=== PATIENT | male | born 1935 | race Caucasian/White ===

== ENCOUNTER → 2017-07-15 | Outpatient (CLI) | payer OTHER, MEDICARE | LOC: FIMAGING 14:33 | PROVIDERS: ATTEND Internal Medicine | DX: M48.06 Spinal stenosis, lumbar region (principal); M79.604 Pain in right leg; M79.605 Pain in left leg; Q61.3 Polycystic kidney, unspecified ==

== ENCOUNTER 2017-07-18 12:17 | Observation (INO) | payer OTHER, MEDICARE ==
--- NOTE | 2017-07-18 12:35 | CPEKG ---
Heart Rate: 94 RR Interval: 638 P-R Interval: 172 QRSD Interval: 94 QT Interval: 356 QTC Interval: 446 P Salem: 45 QRS Salem: -12 T Wave Salem: 9 EKG Severity - BORDERLINE ECG - EKG Impression: SINUS RHYTHM EKG Impression: VENTRICULAR PREMATURE COMPLEX EKG Impression: BORDERLINE T WAVE ABNORMALITIES Electronically Signed By: Robert Meng 18-Jul-2017 13:42:02
--- NOTE | 2017-07-18 13:08 | EDPHY ---
H & P Time Seen by Provider: 07/18/17 12:45 HPI/ROS: CHIEF COMPLAINT: More shaky and chest pain HISTORY OF PRESENT ILLNESS: This 81-year-old man has been having leg weakness for about a month and recently had a lumbar spine MRI. He feels a bit shaky and he is getting more unsteady over the last 2 days on his feet. It is worse in the morning and associated with diffuse muscle aches especially in both legs. Over the last week he has also had trouble writing with his right hand. Today he felt more shaky and had some chest pain which she describes as indigestion starting at about 1030 this morning that lasted about an hour. Did not radiate, no associated shortness of breath or nausea or diaphoresis. Symptoms mild and now gone. REVIEW OF SYSTEMS: Eye: no change in vision ENT: no sore throat Cardiac: HPI Pulmonary: no cough or SOB Abdomen: no vomiting, diarrhea, abdominal pain Musculoskeletal: no back pain Skin: no rash Neuro: no headache, but neurologic as above Constitutional: no fever : no urinary symptoms A comprehensive 10 point review of systems is otherwise negative aside from elements mentioned in the history of present illness. PAST MEDICAL HISTORY: Includes aortic stenosis, hypertension, hyper parathyroid , appendix removed. Social history: for 63 years General Appearance: Alert and conversant, cooperative. Eyes: No scleral icterus. ENT, Mouth: Normal mucous membranes. Respiratory: Normal respiratory effort, breath sounds equal, lungs are clear to auscultation. Cardiovascular: Regular rate and rhythm. 1/6 systolic murmur. Gastrointestinal: Abdomen is soft and non tender. Neurological: Alert and oriented x3. Normally conversant. Patient has slight facial droop on the left which he does not notice and the thinks is probably new, 4-4.5/5 strength in the left arm and the left leg, toes downgoing bilaterally no clonus. Skin: Warm and dry, no rashes. Musculoskeletal: No peripheral edema and no joint swelling. Psychiatric: Not agitated. Emergency Department course/MDM: EKG shows T-wave abnormalities. Patient has neurologic findings concerning for stroke or subdural. Plan for head CT, troponin, CPK, admission. Patient not made a stroke alert because onset of his symptoms is unknown, time of last known normal is not clear. Admission for evaluation of chest pain with abnormal EKG. Also will be seen by Neurology for focal left-sided findings suggestive of stroke. Smoking Status: Never smoked Constitutional: Initial Vital Signs Temperature (C) 36.5 C 07/18/17 12:22 Heart Rate 95 07/18/17 12:22 Respiratory Rate 16 07/18/17 12:22 Blood Pressure 134/61 H 07/18/17 12:22 O2 Sat (%) 98 07/18/17 12:22 O2 Delivery Mode Room Air Allergies/Adverse Reactions: No Known Allergies Allergy (Unverified 05/21/12 14:01) Home Medications: Medication Instructions Recorded Calcitriol [Calcitriol (*)] 0.25 mcg PO DAILY 07/18/17 Cetirizine [ZyrTEC 10 mg (*)] 10 mg PO BID PRN 07/18/17 Cholecalciferol Vit D3 [Vitamin D3 1,000 units PO DAILY 07/18/17 (*)] Dorzolamide 2% [Trusopt 2% (*)] 1 drops OP BID@07/18/17 Dutasteride [Avodart 0.5 MG (*)] 0.5 mg PO HS 07/18/17 Fluticasone Nasal [Flonase Nasal 2 sprays [place] 07/18/17 [place] (RX)] Herbals/Supplements -Info Only 1 each PO DAILY 07/18/17 Latanoprost 0.005% [Xalatan 0.005% 1 drops EACHEYE HS 07/18/17 (*)] Omeprazole [Prilosec 20 mg] 20 mg PO HS PRN 07/18/17 Risedronate Sodium [Actonel] 150 mg PO MO 07/18/17 Sodium Fluoride [Prevident 5000] 1 janee PO HS 07/18/17 Tamsulosin HCl [Flomax 0.4 MG (*)] 0.4 mg PO HS 07/18/17 amLODIPine BESYLATE/BENAZEPRIL 1 each PO HS 07/18/17 [Lotrel 5/10 mg Cap (*)] hydrALAZINE [Apresoline] 25 mg PO DAILY PRN 07/18/17 Medical Decision Making - Diagnostics EKG Interpretation: 12-lead EKG interpreted by me; official reading is in trace master. My interpretation is sinus rhythm with PVC and nonspecific T-wave abnormalities. Imaging Results: Imaging Impressions Head CT 07/18/17 13:05 Impression: 1. Moderate atrophy. 2. No acute hemorrhage, hydrocephalus, or mass effect. 3. Cerebrovascular atherosclerosis. 4. No definite acute infarct. 5. Moderate microvascular ischemic gliosis. 6. Consider MRI of the brain without and with contrast enhancement, if there is continued clinical concern. Findings and recommendations discussed with Emergency Department physician, KORTNEY REESE at 14:12 hour, 07/18/2017. Final report concurs with initial preliminary interpretation. Differential Diagnosis: Differential diagnosis considered for chest pain including but not limited to myocardial ischemia, aortic dissection, pericarditis, pulmonary embolus, chest wall pain, pleural inflammation and pulmonary infectious causes. Consult/Admit Bed Type: [place] [id number], [place] [address] - Data Points Laboratory Results: Laboratory Results 07/18/17 13:00 07/18/17 13:00 07/18/17 07/18/17 07/18/17 13:00 13:00 13:00 WBC 8.48 10^3/uL 10^3/uL (3.80-9.50) RBC 4.06 10^6/uL L 10^6/uL (4.40-6.38) Hgb 12.4 g/dL L g/dL (13.7-17.5) Hct 38.2 % L % (40.0-51.0) MCV 94.1 fL fL (81.5-99.8) MCH 30.5 pg pg (27.9-34.1) MCHC 32.5 g/dL g/dL (32.4-36.7) RDW 15.8 % H % (11.5-15.2) Plt Count 282 10^3/uL 10^3/uL (150-400) MPV 9.7 fL fL (8.7-11.7) Neut % (Auto) 62.7 % % (39.3-74.2) Lymph % (Auto) 27.8 % % (15.0-45.0) Toombs % (Auto) 8.3 % % (4.5-13.0) Eos % (Auto) 0.4 % L % (0.6-7.6) Baso % (Auto) 0.6 % % (0.3-1.7) Nucleat RBC Rel Count 0.0 % % (0.0-0.2) Absolute Neuts (auto) 5.32 10^3/uL 10^3/uL (1.70-6.50) Absolute Lymphs (auto) 2.36 10^3/uL 10^3/uL (1.00-3.00) Absolute Monos (auto) 0.70 10^3/uL 10^3/uL (0.30-0.80) Absolute Eos (auto) 0.03 10^3/uL 10^3/uL (0.03-0.40) Absolute Basos (auto) 0.05 10^3/uL 10^3/uL (0.02-0.10) Absolute Nucleated RBC 0.00 10^3/uL 10^3/uL (0-0.01) Immature Gran % 0.2 % % (0.0-1.1) Immature Gran # 0.02 10^3/uL 10^3/uL (0.00-0.10) PT 13.4 SEC SEC (12.0-15.0) INR 1.03 (0.83-1.16) APTT 27.3 SEC SEC (23.0-38.0) Sodium 138 mEq/L mEq/L (134-144) Potassium 4.0 mEq/L mEq/L (3.5-5.2) Chloride 103 mEq/L mEq/L (97-110) Carbon Dioxide 21 mEq/l L mEq/l (22-31) Anion Gap 14 mEq/L mEq/L (8-16) BUN 21 mg/dL mg/dL (7-23) Creatinine 1.6 mg/dL H mg/dL (0.7-1.3) Estimated GFR 41 Glucose 97 mg/dL mg/dL (70-100) Calcium 10.5 mg/dL H mg/dL (8.5-10.4) Creatine Kinase 154 IU/L IU/L (0-224) Troponin I 0.025 ng/mL ng/mL (0.000-0.034) Departure - Departure Disposition: [facility] Inpatient Acute Clinical Impression: Left-sided weakness Chest pain Qualifiers: Chest pain type: unspecified Qualified Code(s): R07.9 - Chest pain, unspecified Condition: Fair
[2017-07-18 13:20] LABS: % IMMATURE GRANULYOCYTES 0.2 % (0.0-1.1); ABSOLUTE IMMATURE GRANULOCYTES 0.02 10^3/uL (0.00-0.10); ADD DIFF? NO; ADD MORPH? NO; ADD SCAN? NO; ATYPICAL LYMPHOCYTE FLAG 0 (0-99); FRAGMENT RBC FLAG 0 (0-99); HEMATOCRIT 38.2 % (40.0-51.0); HEMOGLOBIN 12.4 g/dL (13.7-17.5); LEFT SHIFT FLG 0 (0-99); LIPEMIA HEMOLYSIS FLAG 80 (0-99); MEAN CELL HEMOGLOBIN 30.5 pg (27.9-34.1); MEAN CELL HEMOGLOBIN CONCENTR. 32.5 g/dL (32.4-36.7); MEAN CELL VOLUME 94.1 fL (81.5-99.8); MEAN PLATELET VOLUME 9.7 fL (8.7-11.7); PLATELET CLUMPS FLAG 0 (0-99); PLATELET COUNT 282 10^3/uL (150-400); RED BLOOD CELL COUNT 4.06 10^6/uL (4.40-6.38); RED CELL DISTRIBUTION WIDTH 15.8 % (11.5-15.2)
[2017-07-18 13:27] LABS: ANION GAP 14 mEq/L (8-16); CALCIUM 10.5 mg/dL (8.5-10.4); CARBON DIOXIDE 21 mEq/l (22-31); CHLORIDE 103 mEq/L (97-110); CREATININE 1.6 mg/dL (0.7-1.3); GLOMERULAR FILTRATION RATE 41; GLUCOSE 97 mg/dL (70-100); SODIUM 138 mEq/L (134-144)
[2017-07-18 13:35] LABS: APTT 27.3 SEC (23.0-38.0); INR 1.03 (0.83-1.16); PROTIME(PATIENT) 13.4 SEC (12.0-15.0)
[2017-07-18 13:38] LABS: TROPONIN I 0.025 ng/mL (0.000-0.034)
[2017-07-18] MEDS ORDERED: ONDANSETRON 4 MG/2 ML VIAL IVP PRN (16:16)
[2017-07-18] MEDS ORDERED: ONDANSETRON DISINTEGRATING 4 MG TAB PO PRN (16:16)
[2017-07-18] MEDS ORDERED: CETIRIZINE 10 MG TAB PO PRN (16:18)
[2017-07-18] MEDS ORDERED: NON-FORMULARY NEW DRUG (Omeprazole [Prilosec 20 Mg] 20 MG) PO PRN (16:18)
[2017-07-18] MEDS ORDERED: PANTOPRAZOLE SODIUM 40 MG TAB PO PRN (16:22)
--- NOTE | 2017-07-18 16:49 | GHP ---
[f rep st] HISTORY AND PHYSICAL DATE OF ADMISSION: 07/18/2017 CHIEF COMPLAINT: Generalized weakness. HISTORY OF PRESENT ILLNESS: This is an 81-year-old male, who has been having problems with lower ex tremity pain bilaterally and progressing weakness over the last several weeks. He has had some phys ical therapy for this and a recent MRI, which did show severe lumbar radiculopathy. However, the week or so, he has been feeling more generally weak. He feels tremulous. He also feels a little bit dizzy. He has had some word-finding difficulties, as well. He complains of a frontal headache that is new. He had an episode of chest pain today, but that has resolved. He also feels some dys pnea on exertion. No fevers or chills. REVIEW OF SYSTEMS: A 10-point review of systems was obtained and otherwise was negative. PAST MEDICAL HISTORY: 1. Aortic stenosis, being followed by [facility]. 2. Chronic kidney disease. 3. Hypertension. 4. BPH. 5. Osteoporosis. 6. GERD. MEDICATIONS: Reviewed. SOCIAL HISTORY: No smoking. Occasional alcohol. Lives in [place]. FAMILY HISTORY: Reviewed and noncontributory. PHYSICAL EXAM: VITAL SIGNS: Afebrile, blood pressure is 116/83, heart rate 75, oxygen saturation 9 4% on room air. GENERAL: The patient is well developed, in no apparent distress. HEENT: Nonicter ic sclerae. Extraocular movements intact. Moist mucous membranes. NECK: Supple. No thyromegaly. LUNGS: Good effort. Clear to auscultation bilaterally. CARDIOVASCULAR: Regular rate and rhythm . A 2/6 systolic murmur, heard best at the left upper sternal border. ABDOMEN: Positive bowel bev nds. Soft, nontender, nondistended. No hepatosplenomegaly. EXTREMITIES: No clubbing, cyanosis, o r edema. SKIN: Without rash. Warm, dry, intact. NEUROLOGIC: Alert, oriented x3. Very slight le ft facial droop. Slight left-sided weakness with a small amount of pronator drift. PSYCH: Normal mood and affect. LABS: Creatinine 1.6, which is his baseline. CBC is essentially normal. Calcium is a little bit h igh at 10. CT scan of the head does not show anything acute. EKG, personally reviewed and interpre jakob, normal sinus rhythm, T-wave flattening, but no ischemic changes. ASSESSMENT: This is an 81-year-old male presenting with probable cerebrovascular accident. PLAN: 1. Probable cerebrovascular accident. Will check MRI of the brain. If positive, we will go ahead with stroke workup. We will continue aspirin. Patient is definitely out of the tPA window. 2. Chest pain. This has resolved. Patient feels like this is probably gastrointestinal in nature. He does not usually get chest pain. We will check a morning troponin, but if it does not reoccur, we will not get stress testing. 3. Aortic stenosis. Patient is due for an echocardiogram, which we will get. 4. Chronic kidney disease. He is at baseline. CODE STATUS: Patient is a [id number]. /[id number]/MODL
[2017-07-18] MEDS: DORZOLAMIDE 2% OPTH DROPS OP SCH (17:57)
[2017-07-18 20:37] LABS: COLOR YELLOW; LEUKOCYTE ESTERASE,URINE NEGATIVE (NEGATIVE); NITRITE,URINE NEGATIVE (NEGATIVE)
[2017-07-18] MEDS ORDERED: DUTASTERIDE 0.5 MG CAP PO SCH (21:00)
[2017-07-18] MEDS ORDERED: TAMSULOSIN HCL 0.4 MG CAP PO SCH (21:00)
[2017-07-18] MEDS ORDERED: FLUTICASONE NASAL 120 SPRAYS/16 GM MDI EACHNARE SCH (21:00)
[2017-07-18] MEDS ORDERED: AMLODIPINE BESYLATE 5/BENAZEPRIL 10MG 1 EACH CAP PO SCH (21:00)
[2017-07-18] MEDS ORDERED: LATANOPROST 0.005% 2.5 ML OPHT DROPS EACHEYE SCH (21:00)
[2017-07-18] MEDS: ACETAMINOPHEN 325 MG TAB PO PRN (22:54)
[2017-07-19] MEDS: DORZOLAMIDE 2% OPTH DROPS OP SCH (04:41)
[2017-07-19 05:02] LABS: IONIZED CALCIUM 1.23 MMOL/L (1.12-1.30)
[2017-07-19 05:19] LABS: ALANINE AMINOTRANSFERASE 31 IU/L (21-72); ALBUMIN 3.3 g/dL (3.5-5.0); ALKALINE PHOSPHATASE 25 IU/L (38-126); ANION GAP 10 mEq/L (8-16); ASPARTATE AMINOTRANSFERASE 27 IU/L (17-59); BILIRUBIN,TOTAL 0.6 mg/dL (0.1-1.4); CALCIUM 9.6 mg/dL (8.5-10.4); CARBON DIOXIDE 20 mEq/l (22-31); CHLORIDE 107 mEq/L (97-110); CREATININE 1.5 mg/dL (0.7-1.3); GLOMERULAR FILTRATION RATE 45; GLUCOSE 69 mg/dL (70-100); POTASSIUM 4.4 mEq/L (3.5-5.2); SODIUM 137 mEq/L (134-144)
[2017-07-19 05:30] LABS: TROPONIN I 0.024 ng/mL (0.000-0.034)
[2017-07-19 07:35] LABS: COLOR YELLOW; LEUKOCYTE ESTERASE,URINE NEGATIVE (NEGATIVE); NITRITE,URINE NEGATIVE (NEGATIVE)
[2017-07-19] MEDS: ACETAMINOPHEN 325 MG TAB PO PRN (08:11)
[2017-07-19 12:16] VITALS: O2SAT 93
[2017-07-19 15:15] VITALS: BP 115/66; PULSE 83; RESP 15; TEMP 97.9
--- NOTE | 2017-07-19 16:14 | ECHO ---
[id number] + + [address] : : [place] [address] : : [phone] + Adult Echocardiographic Report + -------+ :Name: ANGIE CARR Date: 07/19/2017 02:05 PM : : Hospital Admission Number: [id number] Locati on: 213: :: 1935 Gender: Male Height: 70 in : :Age: 81 yrs Race: WH Weight: 169 lb : :Reason For Study: Eval LV Fx : : BSA: 1.9 meter s2 : :History: Known AI : + -------+ MMode/2D Measurements \T\ Calculations IVSd: 0.86 cm LVIDd: 5.3 cm FS: 42.6 % Ao root diam: 3.2 cm LVPWd: 0.99 cm LVIDs: 3.1 cm EDV(Teich): 137.5 ml ACS: 1.9 cm ESV(Teich): 36.8 ml EF(Teich): 73.3 % LVOT diam: 2.1 cm LVOT area: 3.5 cm2 Normal Measurement Values: + + :LVIDd (3.5-5.7cm) IVSd (0.6-1.1cm) LVPWd (0.6-1.1cm) Aortic Root (2.0-3.7cm)Left Atrium (1.5-4.0cm): :LV Vol(d) (76-115ml) LV Vol(s) (29-48ml) Ejec Fraction (50-65%)PV Jose (0.6- 1.2m/s) TV Jose (0.4-1.0m/s) : :MV E Jose (0.8-1.0m/s)MV A Jose (0.3-1.0m/s)LVOT Jose (0.7-1.2m/s) Asc Ao Jose ( 0.9-1.8m/s) : + + Doppler Measurements \T\ Calculations MV E max jose: Ao V2 max: AI max jose: LV V1 max: 62.2 cm/sec 160.2 cm/sec 322.5 cm/sec 123.9 cm/sec MV A max jose: Ao max PG: AI max P.6 mmHg LV V1 max P.5 cm/sec 10.3 mmHg AI dec slope: 6.1 mmHg MV E/A: 0.83 IVAN(V,D): 2.7 cm2 145.0 cm/sec2 AI P1/2t: 651.5 msec PA V2 max: 48.9 cm/sec PA max P.96 mmHg Left Ventricle The left ventricle is normal in size. There is normal left ventricular wall thickness. The left ventricular ejection fraction is normal. There is Doppler evidence for diastolic dysfunction. Ejection Fraction = 74%. Right Ventricle The right ventricle is normal in size and function. Atria The left atrial size is normal. Right atrial size is normal. Mitral Valve The mitral valve leaflets appear thickened, but open well. There is no evidence of mitral valve prolapse. There is no mitral valve stenosis. There is trace to mild mitral regurgitation. Tricuspid Valve Normal tricuspid valve. There is trace tricuspid regurgitation. Right ventricular systolic pressure is normal. Aortic Valve The aortic valve is trileaflet. The aortic valve opens well. There is no aortic stenosis. There is known moderate aortic sufficiency. Pulmonic Valve The pulmonic valve is normal in structure and function. Trace pulmonic valvular regurgitation. Great Vessels The aortic root is normal size. Pericardium/Pleural There is no pericardial effusion. Conclusion A complete two-dimensional transthoracic echocardiogram was performed (2D, M-mode, Doppler and color flow Doppler). Technically difficult study with poor acoustic windows. The left ventricular ejection fraction is normal. There is Doppler evidence for diastolic dysfunction. Ejection Fraction = 74%. Grossly normal wallm motion. The right ventricle is normal in size and function. The left atrial size is normal. The mitral valve leaflets appear thickened, but open well. There is no evidence of mitral valve prolapse. There is no mitral valve stenosis. There is trace to mild mitral regurgitation. Normal tricuspid valve There is trace tricuspid regurgitation. Right ventricular systolic pressure is normal. Mils aortic sclerosis. The aortic valve is trileaflet. The aortic valve opens well. There is known moderate aortic sufficiency. The current study demonstrates mild aortic insufficiency. Trace pulmonic valvular regurgitation. The aortic root is normal size. There is no pericardial effusion. Final Reading Physician: Jie Hermosillo signed on 07/19/2017 04:13 PM Ordering Physician: Jose Alfredo Craft Performed By: Jeff Zhou, CS
--- NOTE | 2017-07-19 18:52 | GDS ---
[f rep st] DISCHARGE SUMMARY DISCHARGE DIAGNOSES: 1. Lower extremity weakness most likely due to radiculopathy. 2. History of aortic stenosis, which is stable. 3. Chronic kidney disease. 4. Hypertension. 5. Benign prostatic hypertrophy. 6. Osteoporosis. 7. Gastroesophageal reflux disease. HISTORY: This is an 81-year-old male, who has been having worsening lower extremity pain and weakne ss over the last several weeks. He had a short episode of chest pain which resolved today but mostl y came in because of his weakness. HOSPITAL COURSE: Patient was admitted. It looks like he had a slight facial droop. He did have an MRI of his brain, which was negative for any stroke. Also had an echocardiogram which showed his a ortic stenosis to be at baseline with no wall motion abnormalities. His troponins have been negativ e. His chest pain never came back. It was not convincing for cardiac. 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 /[id number]/MODL
== END 2017-07-19 17:41 | disposition home or self-care (01) ==
LOC: INTOOBSV 15:01 → F2W 16:19
PROVIDERS: ADMIT Internal Medicine; ATTEND Internal Medicine
DX: M62.81 Muscle weakness (generalized) (principal); I35.0 Nonrheumatic aortic (valve) stenosis; R07.9 Chest pain, unspecified; N18.9 Chronic kidney disease, unspecified; I12.9 Hypertensive chronic kidney disease with stage 1 through stage 4 chronic kidney disease, or unspecified chronic kidney disease; I67.2 Cerebral atherosclerosis; N40.0 Benign prostatic hyperplasia without lower urinary tract symptoms; K21.9 Gastro-esophageal reflux disease without esophagitis; M81.0 Age-related osteoporosis without current pathological fracture
CPT/HCPCS: 70450; 70551; 93005; 93306; 97161; 97165; 99285; G0378; G8978; G8979; G8987; G8988; G8989

== ENCOUNTER → 2018-07-23 | Outpatient (CLI) | payer OTHER, MEDICARE | LOC: BHFA 13:15 | PROVIDERS: ATTEND Internal Medicine Cardiovascular Disease | DX: I35.9 Nonrheumatic aortic valve disorder, unspecified (principal) ==

== ENCOUNTER → 2018-07-31 | Outpatient (CLI) | payer OTHER, MEDICARE | LOC: BHLMT 13:15 | PROVIDERS: ATTEND Internal Medicine Cardiovascular Disease | DX: Z01.810 Encounter for preprocedural cardiovascular examination (principal); I35.1 Nonrheumatic aortic (valve) insufficiency; I10 Essential (primary) hypertension | CPT/HCPCS: 93306-PO ==

== ENCOUNTER 2018-08-06 10:45 | Observation (INO) | payer OTHER, MEDICARE ==
[2018-08-30] MEDS ORDERED: GABAPENTIN 300 MG CAP PO ONE (11:10)
[2018-08-30] MEDS ORDERED: LIDOCAINE 1% 2 ML INJ ID PRN (11:10)
[2018-08-30] MEDS ORDERED: ceFAZolin 2 GM/DEXTROSE 100 ML IV ONE (11:10)
[2018-08-30] MEDS ORDERED: LR 1,000 ML IV ONE (11:10)
[2018-08-30] MEDS ORDERED: ACETAMINOPHEN 500 MG TAB PO ONE (11:10)
[2018-08-30] MEDS ORDERED: BUPIVACAINE 0.25% 30 ML SDV ONE (13:46)
[2018-08-30] MEDS ORDERED: EPINEPHrine 1 MG/ML INJ ONE (13:46)
[2018-08-30] MEDS ORDERED: BACITRACIN 50,000 UNITS/10 ML SYR IRR ONE (13:46)
[2018-08-30] MEDS ORDERED: CHLORHEXIDINE GLUC HIBICLENS 118 ML BTL TP ONE (13:46)
[2018-08-30] MEDS ORDERED: THROMBIN (BOVINE) 5,000 UNIT VIAL TP ONE ×2 (13:46→14:07)
--- NOTE | 2018-08-30 13:48 | PDHPUP ---
History & Physical Update H&P update statement: This history and physical update is based on an assessment of the patient which was completed after admission or registration (within 24 hours), but prior to the surgery/procedure. H&P update: no change in patient's condition since H&P completed
--- NOTE | 2018-08-30 14:10 | PDANEPAE ---
ANE Past Medical History - Cardiovascular History Hx Hypertension: Yes Hx Arrhythmias: No Hx Chest Pain: No Hx Coronary Artery / Peripheral Vascular Disease: Yes Hx CHF / Valvular Disease: No Hx Palpitations: No Cardiovascular History Comment: AORTIC STENOSIS - Pulmonary History Hx COPD: No Hx Asthma/Reactive Airway Disease: No Hx Recent Upper Respiratory Infection: No Hx Oxygen in Use at Home: No Hx Sleep Apnea: Yes Sleep Apnea Screening Result - Last Documented: Positive Pulmonary History Comment: DILIA USES C-PAP INSTRUCTED TO BRING DOS - Neurologic History Hx Cerebrovascular Accident: No Hx Seizures: Yes Hx Dementia: No Neurologic History Comment: 1993 ONE TIME - Endocrine History Hx Diabetes: No Endocrine History Comment: PARATHYROIDECTOMY - Renal History Hx Renal Disorders: Yes Renal History Comment: KIDNEY CYST. CKD MODERATE DR CORDERO/PETER - Liver History Hx Hepatic Disorders: No - Neurological & Psychiatric Hx Hx Neurological and Psychiatric Disorders: Yes Neurological / Psychiatric History Comment: ANXIETY - Cancer History Hx Cancer: No - Congenital Disorder History Hx Congenital Disorders: No - GI History Hx Gastrointestinal Disorders: Yes Gastrointestinal History Comment: GERD - Other Health History Other Health History: GLAUCOMA. ANEMIA FOLLOWED BY [facility] - Chronic Pain History Chronic Pain: Yes (bila lower legs x 2mo) - Surgical History Prior Surgeries: PARATHYROIDECTOMY 2011. RT ING HERNIA. BLEEDING ULCER. TONSILLECTOMY. LT CATARACT. APPENDECTOMY ANE Review of Systems Review of Systems: - Exercise capacity METS (RN): 4 METS ANE Patient History - Allergies Allergies/Adverse Reactions: No Known Allergies Allergy (Verified 08/28/18 12:39) - Home Medications Home Medications: Cetirizine [ZyrTEC 10 mg (*)] 10 mg PO BID PRN 07/18/17 [Last Taken 08/29/18] Cholecalciferol Vit D3 [Vitamin D3 (*)] 1,000 units PO DAILY 07/18/17 [Last Taken 08/23/18] Dorzolamide 2% [Trusopt 2% (*)] 1 drops EACHEYE BID 07/18/17 [Last Taken ] Dutasteride [Avodart 0.5 MG (*)] 0.5 mg PO HS 07/18/17 [Last Taken 08/29/18] Herbals/Supplements -Info Only 1 each PO DAILY 07/18/17 [Last Taken 08/23/18] Latanoprost 0.005% [Xalatan 0.005% (*)] 1 drops EACHEYE HS 07/18/17 [Last Taken 08/29/18] Omeprazole [Prilosec 20 mg] 20 mg PO DAILY 07/18/17 [Last Taken 08/29/18] Tamsulosin HCl [Flomax 0.4 MG (*)] 0.4 mg PO HS 07/18/17 [Last Taken 08/29/18] amLODIPine BESYLATE/BENAZEPRIL [Lotrel 5/10 mg Cap (*)] 1 each PO HS 07/18/17 [ Last Taken 08/29/18] Gabapentin [Neurontin 300 MG (*)] 300 mg PO HS 07/20/18 [Last Taken 08/29/18] Montelukast Sodium [Singulair 10 mg (*)] 10 mg PO HS 07/20/18 [Last Taken ] PARoxetine HCL [Paxil 20mg (*)] 20 mg PO DAILY 07/20/18 [Last Taken 08/29/18] Acetaminophen [Tylenol ES 500 mg (*)] 1,000 mg PO Q6 PRN 08/30/18 [Last Taken 06:00 1000 mg] - NPO status NPO Since - Liquids (Date): 08/30/18 NPO Since - Liquids (Time): 07:30 NPO Since - Solids (Date): 08/29/18 NPO Since - Solids (Time): 18:30 - Smoking Hx Smoking Status: Never smoked ANE Labs/Vital Signs - Vital Signs Blood Pressure: 162/77 Heart Rate: 87 Respiratory Rate: 18 O2 Sat (%): 92 Height: 170.18 cm Weight: 77.111 kg ANE Physical Exam - Airway Mallampati Score: Class 2 - ASA Status ASA Status: III ANE Anesthesia Plan Anesthesia Plan: general endotracheal anesthesia
[2018-08-30] MEDS ORDERED: PROPOFOL/EMULSION 500 MG/50 ML BOTTLE IV ONE (14:17)
[2018-08-30] MEDS ORDERED: METOCLOPRAMIDE 10 MG/2 ML VIAL ONE (14:17)
[2018-08-30] MEDS ORDERED: ONDANSETRON 4 MG/2 ML VIAL ONE (14:17)
[2018-08-30] MEDS ORDERED: fentaNYL 100 MCG/2 ML INJ ONE (14:17)
[2018-08-30] MEDS ORDERED: ROCURONIUM 50 MG/5 ML VIAL ONE (14:17)
[2018-08-30] MEDS ORDERED: PROPOFOL 200 MG/20 ML VIAL ONE (14:18)
[2018-08-30] MEDS ORDERED: METHOCARBAMOL 750 MG TAB PO PRN (16:02)
[2018-08-30] MEDS ORDERED: BISACODYL 10 MG SUPP PR PRN (16:02)
[2018-08-30] MEDS ORDERED: LACTULOSE 20 GM/30 ML UDCUP PO PRN (16:02)
[2018-08-30] MEDS ORDERED: oxyCODONE IR 5 MG TAB PO PRN (16:02)
[2018-08-30] MEDS ORDERED: diphenhydrAMINE 25 MG CAP PO PRN (16:02)
[2018-08-30] MEDS ORDERED: MAGNESIUM HYDROXIDE 30 ML UDCUP PO PRN (16:02)
[2018-08-30] MEDS ORDERED: ONDANSETRON 4 MG/2 ML VIAL IVP PRN (16:02)
[2018-08-30] MEDS ORDERED: ONDANSETRON DISINTEGRATING 4 MG TAB PO PRN (16:02)
--- NOTE | 2018-08-30 16:02 | POSTOPPROG ---
Post Op Note Date of Operation: 08/30/18 Surgeon: Jose Hicks Striper: Luis Barrera PAC Anesthesiologist: Jorge Valentin Anesthesia: GET(General Endotracheal) Pre-op Diagnosis: L4/5 Stenosis Post-op Diagnosis: Same Indication: left > right leg pain Procedure: L4/5 Microdecompression Findings: Stenosis Inf/Abcess present in the surg proc area at time of surgery?: No EBL: 50-100 Complications: None Drains: Shimon Jean-Baptiste (to bulb suction) Specimen(s): none
[2018-08-30] MEDS ORDERED: CETIRIZINE 10 MG TAB PO PRN (16:05)
--- NOTE | 2018-08-30 16:14 | SOAPPROG ---
SOAP Progress Note Assessment/Plan: Assessment: 82 yo male sp L 4/5 microdecompression doing well Plan: CPM in PACU transfer to floor per protocol LYUDMILA to bulb suction 08/30/18 16:10 Subjective: Groggy, opens eyes to voice stimulation and HERNÁNDEZ spontaneously Comfortable Objective: Vital Signs Temp Pulse Resp BP Pulse Ox 36.9 C 87 18 162/77 H 92 08/30/18 11:33 08/30/18 14:09 08/30/18 14:09 08/30/18 14:09 08/30/18 14:09 Neuro: HERNÁNDEZ to command sens +LT PERRLA Vitals: HR: 79 BP: 144/60 O2: 98 % face mask ICD10 Worksheet Patient Problems: Problems Problem Status Onset Chest pain Acute Left-sided weakness Acute
[2018-08-30] MEDS ORDERED: LR 500 ML IV PRN (16:15)
[2018-08-30] MEDS ORDERED: NALOXONE HCL 0.4 MG/ML INJ IVP PRN (16:15)
[2018-08-30] MEDS ORDERED: PHENYLEPHRINE HCL 100 MCG/ML SYR IVP PRN (16:15)
[2018-08-30] MEDS ORDERED: fentaNYL 100 MCG/2 ML INJ IVP PRN (16:15)
--- NOTE | 2018-08-30 16:16 | POSTANESTH ---
Post Anesthetic Evaluation Cardiovascular Status: Similar to Pre-Op Cond Respiratory Status: Normal, Stable Level of Consciousness/Mental Status: Can Participate in Eval Pain Control: Adequate, Prn Tx Ordered Nausea/Vomiting Control: Adequate, Prn Tx Ordered Complications Possibly Related to Anesthesia: None Noted
--- NOTE | 2018-08-30 17:14 | GOP ---
DATE OF OPERATION: 08/30/2018 SURGEON: Jose Hicks MD NEUROSURGEON: Jose Hicks MD FORMULATION CHEMIST: FABRIZIO Catherine ANESTHESIA: General endotracheal. PREOPERATIVE DIAGNOSIS: Severe L4-5 degenerative disk disease with critical spinal stenosis and intr actable left lower extremity radicular pain. Failed conservative care. POSTOPERATIVE DIAGNOSIS: Severe L4-5 degenerative disk disease with critical spinal stenosis and int ractable left lower extremity radicular pain. Failed conservative care. PROCEDURE PERFORMED: Minimally invasive left-sided L4-5 posterior hemilaminectomy, medial facetectom y, and foraminotomy with decompression of central canal. Use of intraoperative microscopy and fluoro scopy. FINDINGS: ESTIMATED BLOOD LOSS: Trace. INDICATIONS: The patient is an 82-year-old man with intractable left lower extremity discomfort, sec ondary to severe spinal stenosis at the L4-5 level with severe impingement of the left L5 nerve root. He has failed conservative care and presents now for surgical decompression through a minimally inv asive approach. DESCRIPTION OF PROCEDURE: After informed consent was obtained, the patient was taken to the operatin g room and placed in the prone position on the Darin frame. The lumbosacral area was prepped and dr aped in sterile fashion, and after fluoroscopic localization of the correct levels, the subcutaneous and intramuscular tissues were infiltrated with local anesthesia. A midline linear incision was then created over the L4-5 spinous processes. This was carried down to the fascial layer, which was then incised using monopolar electrocautery and carried in a subperiost eal plane along the spinous processes and lamina on the left. Intraoperative fluoroscopy was again u tilized to verify the correct levels. Following this, the microscope was brought in and the [employer] system utilizing in conjunct ion with the angled curettes and a Kerrison rongeur in order to perform a left-sided hemilaminectomy and medial facetectomy in order to adequately decompress the lateral recess and central canal. A for aminotomy was also performed and the ligamentum flavum was carefully removed. There was very severe stenosis and we extensively decompressed the central canal lateral recess, and neural foramina. Following adequate decompression, the wound and epidural space were copiously irrigated with antibiot ic irrigation and meticulous hemostasis was achieved. A drain was then placed. The subcutaneous and intramuscular tissues were re-infiltrated with local anesthesia, and the wound was closed in a layer ed fashion using interrupted Vicryl sutures, followed by Steri-Strips on the skin. COMPLICATIONS: None. DISPOSITION: The patient is currently in the process of being repositioned for extubation. /[id number]/MODL
[2018-08-30] MEDS ORDERED: NS W/ 20 KCl/L 1,000 ML IV SCH (19:00)
[2018-08-30] MEDS ORDERED: TAMSULOSIN HCL 0.4 MG CAP PO SCH (21:00)
[2018-08-30] MEDS ORDERED: LATANOPROST 0.005% 2.5 ML OPHT DROPS EACHEYE SCH (21:00)
[2018-08-30] MEDS ORDERED: DUTASTERIDE 0.5 MG CAP PO SCH (21:00)
[2018-08-30] MEDS ORDERED: MONTELUKAST SODIUM 10 MG TAB PO SCH (21:00)
[2018-08-30] MEDS ORDERED: AMLODIPINE BESYLATE 5/BENAZEPRIL 10MG 1 EACH CAP PO SCH (21:00)
[2018-08-30] MEDS: FAMOTIDINE 20 MG TAB PO SCH (22:05)
[2018-08-30] MEDS: ceFAZolin 2 GM/DEXTROSE 100 ML IV SCH (22:05)
[2018-08-30] MEDS: SENNOSIDES/DOCUSATE SODIUM TAB PO SCH (22:06)
[2018-08-30] MEDS: ACETAMINOPHEN 500 MG TAB PO SCH (22:06)
[2018-08-30] MEDS: GABAPENTIN 300 MG CAP PO SCH (22:08)
[2018-08-30] MEDS: POLYETHYLENE GLYCOL 3350 17 GM PKT PO SCH (22:13)
[2018-08-30] MEDS: DORZOLAMIDE 2% OPTH DROPS EACHEYE SCH (22:30)
[2018-08-31 04:42] LABS: PLATELET COUNT 185 10^3/uL (150-400)
[2018-08-31] MEDS: ceFAZolin 2 GM/DEXTROSE 100 ML IV SCH (05:36)
[2018-08-31] MEDS: ACETAMINOPHEN 500 MG TAB PO SCH (05:37)
[2018-08-31] MEDS: GABAPENTIN 300 MG CAP PO SCH (05:37)
--- NOTE | 2018-08-31 06:33 | NEUSURGPN ---
Assessment/Plan: 82y/o male s/p L4/5 HARMONY -LYUDMILA, [address] Patel would like to keep until tomorrow. -PT/OT -Optmize pain management -DVT prophx: TEDs, SCDs, Lovenox okay POD1 -Please notify NS with any change in neuro/motor exam Subjective: Denies any new pain or weakness Objective: NAD A&Ox3 MAEx4 5/5 and equal. Incision c/d/i LYUDMILA drain serosanguineous - Physician Discussed Patient with DrCayden: Kurt Neurosurgery Physical Exam - Vitals, I&O, Labs I and O 08/30/18 08/31/18 09/01/18 05:59 05:59 05:59 Intake Total 2000 Output Total 595 Balance 1405 Weight 77.111 kg Intake: Oral (ml) 610 IV Intake (ml) 850 IV Infused (ml) 540 NS W/ 20 KCl/L 1,000 ml @ 540 75 mls/hr IV CONT JULIEN Rx #:[id number] Output: Urine (ml) 500 Toilet 500 Estimated Blood Loss (ml) 50 LYUDMILA Drain Output (ml) 45 Left Back Shimon Jean-Baptiste 45 Other: Intake Quantity Yes Sufficient Vital Signs Temp Pulse Resp BP Pulse Ox 36.6 C 54 L 16 123/57 H 94 08/31/18 03:38 08/31/18 03:38 08/31/18 03:38 08/31/18 03:38 08/31/18 03:38 Laboratory Results 08/31/18 04:20 08/31/18 04:20 ICD10 Worksheet Patient Problems: Problems Problem Status Onset Chest pain Acute Left-sided weakness Acute
[2018-08-31] MEDS ORDERED: PARoxetine HCL 20 MG TAB PO SCH (09:00)
[2018-08-31] MEDS ORDERED: ENOXAPARIN 40 MG/0.4 ML SYR SC SCH (09:00)
[2018-08-31] MEDS ORDERED: CHOLECALCIFEROL VIT D3 1,000 UNITS TAB PO SCH (09:00)
[2018-08-31 09:45] VITALS: BP 133/54
--- NOTE | 2018-08-31 10:03 | ASMTLACE ---
LACE Length of stay for Answers: 2 days current admission Acuity / Level of Answers: No Care: Did the patient have an inpatient admission? Comorbidities - select Answers: Mild liver or renal all that apply disease Other Notes: HTN # of Emergency department Answers: 0 visits in the last 6 months Score: 5 Date Signed: 08/31/2018 10:03 AM Electronically Signed By:BREA Johnson
[2018-08-31] MEDS: POLYETHYLENE GLYCOL 3350 17 GM PKT PO SCH (12:05)
[2018-08-31] MEDS: SENNOSIDES/DOCUSATE SODIUM TAB PO SCH (12:06)
[2018-08-31] MEDS: FAMOTIDINE 20 MG TAB PO SCH (12:07)
[2018-08-31] MEDS: DORZOLAMIDE 2% OPTH DROPS EACHEYE SCH (12:34)
--- NOTE | 2018-08-31 15:17 | ASDISCHSUM ---
Discharge Information Plan Status:Home with Home Health Medically Cleared to Leave: Discharge Date:08/31/2018 02:00 PM D/C Disposition:Home Health Service ADT D/C Disposition:Home, Routine, Self-Care Projected Discharge Date:08/31/2018 11:00 AM Transportation at D/C: Discharge Delay Reason: Follow-Up Date:08/31/2018 11:00 AM Discharge Slot: Final Diagnosis: Placement Information Referral Type:*Home Health Care Services Referral ID:[id number] Provider Name:[facility] Ozzy JERRELL) Address 1:[address] [facility] Address 2:[facility] [address] City:[place] Selection Factors: State:[place] Patient Contact Information Contact Name:AMERICO Relationship: Address:[address] Work Phone: [facility] Phone: [facility]/Zip Code:[place] [address] Email: Financial Information Financial Class:Medicare Primary Plan Desc:MEDICARE INPATIENT Primary Plan Number:[id number] Secondary Plan Desc:[employer]/MDR SUPPLEMENT Secondary Plan Number:[id number] Assessment Information LACE LACE Length of stay for Answers: 2 days current admission Acuity / Level of Answers: No Care: Did the patient have an inpatient admission? Comorbidities - select Answers: Mild liver or renal all that apply disease Other Notes: HTN # of Emergency department Answers: 0 visits in the last 6 months Score: 5 Date Signed: 08/31/2018 10:03 AM Electronically Signed By:BREA Johnson [facility] CM Progress Note CM Note CM Note Notes: Pt had planned surgery for stenosis. PT rec home health and pt amenable. Pt addres/phone verified. Pt medically stable for d/c [facility] can accept pt, no orders needed since they have MD protocol. . Date Signed: 08/31/2018 03:12 PM Electronically Signed By:BREA Johnson Intervention Information
[2018-08-31] MEDS ORDERED: FAMOTIDINE 20 MG TAB PO SCH (21:00)
== END 2018-08-31 14:00 | disposition home health service (06) ==
LOC: F3N 08-30 10:52
PROVIDERS: ADMIT Neurological Surgery; ATTEND Neurological Surgery
PROC: 8E0WXBG Computer Assisted Procedure of Trunk Region, With Computerized Tomography (ICD-10-PCS; principal; 2018-08-30 13:15)
PROC: 00NY0ZZ Release Lumbar Spinal Cord, Open Approach (ICD-10-PCS; principal; 2018-08-30 13:15)
PROC: 4A10X4G Monitoring of Central Nervous Electrical Activity, Intraoperative, External Approach (ICD-10-PCS; principal; 2018-08-30 13:15)
PROC: BR191ZZ Fluoroscopy of Lumbar Spine using Low Osmolar Contrast (ICD-10-PCS; principal; 2018-08-30 13:15)
DX: M48.061 Spinal stenosis, lumbar region without neurogenic claudication (principal); M51.36 Other intervertebral disc degeneration, lumbar region; M54.16 Radiculopathy, lumbar region; D64.9 Anemia, unspecified; I35.1 Nonrheumatic aortic (valve) insufficiency; N18.3 Chronic kidney disease, stage 3 (moderate); I12.9 Hypertensive chronic kidney disease with stage 1 through stage 4 chronic kidney disease, or unspecified chronic kidney disease; K21.9 Gastro-esophageal reflux disease without esophagitis; G47.33 Obstructive sleep apnea (adult) (pediatric); Z87.891 Personal history of nicotine dependence
CPT/HCPCS: 63047; 76001; 97116; 97161; 97165; G8978; G8979; G8987; G8988; G8989; J0171; J0690; J1650; J2405; J2704; J2765; J3010